=== PATIENT | female | born 1980 | race Two or more races ===

== ENCOUNTER 2016-06-14 20:10 | Emergency (ER) | payer MEDICARE, MEDICAID ==
[2016-06-14] MEDS ORDERED: LACTATED RINGERS 1,000 ML ONE (20:54)
[2016-06-14 21:09] LABS: BASO # 0.1 K/mm3 (0.0-0.2); BASO % 0.4 % (0.2-1.0); EOS # 0.2 (0.0-0.5); EOS % 1.5 % (0.9-2.9); HEMATOCRIT 32.1 % (37.0-47.0); HEMOGLOBIN 10.3 gm/l (12.0-16.0); IMM NEUT # 0.1 K/mm3 (0-0.2); IMM NEUT% 0.6 % (0-1); LYMPH # 2.7 (1.0-4.8); LYMPH % 23.4 % (15-45); MEAN CELL VOLUME 87.7 fl (81.0-99.0); MEAN CORPUSCULAR HEMOGLOBIN 28.1 pg (27.0-31.0); MEAN CORPUSCULAR HGB CONC 32.1 g/dl (33.0-37.0); MEAN PLATELET VOLUME 9.7 fl (7.4-10.4); MONO # 0.6 (0.0-0.8); MONO % 5.1 % (4-12); PLATELET COUNT 237 K/mm3 (130-400); RED CELL DISTRIBUTION WIDTH 16.9 % (11.5-14.5)
[2016-06-14 21:15] LABS: ALB/GLOB RATIO 1.1 (>1.0); ALBUMIN 3.3 gm/dL (3.5-5.7); CALCIUM 8.8 mg/dL (8.6-10.3)
[2016-06-14 22:03] LABS: SPECIFIC GRAVITY 1.005 (1.001-1.030); URINE BILIRUBIN NEGATIVE (NEGATIVE); URINE BLOOD 4+ (NEGATIVE); URINE GLUCOSE (UA) NEGATIVE (NEGATIVE); URINE LEUKOCYTE ESTERASE NEGATIVE (NEGATIVE); URINE NITRITE NEGATIVE (NEGATIVE); URINE PROTEIN NEGATIVE (NEGATIVE); URINE UROBILINOGEN NORMAL (0-1 mg/dl)
[2016-06-14 22:10] LABS: URINE APPEARANCE CLEAR; URINE COLOR YELLOW
[2016-06-14 22:19] LABS: URINE BACTERIA RARE; URINE EPITHELIAL CELLS 0-1 /hpf; URINE RBC 30-40 /hpf; URINE WBC 0-1 /hpf
[2016-06-14] MEDS ORDERED: RHOGAM 300 MCG SYRINGE ONE (23:03)
[2016-06-14] MEDS ORDERED: AMOXICILLIN TRIHYDRATE 250 MG CAPSULE ONE (23:36)
--- NOTE | 2016-06-15 08:31 | US ---
OB COMP >14 WKS HISTORY: Vaginal bleeding. COMPARISONS: 04/11/2016 FINDINGS: Multiple grayscale, color-flow and duplex Doppler images during Limited second trimester OB ultrasound are obtained. A single intrauterine gestation is identified in a breech position. Placental location is difficult to determine though likely fundal. No discernible amniotic fluid compatible with anhydramnios. heart tones are present at 167 bpm. Biparietal diameter is 4.1 cm for gestational age 18 weeks and 3 days. Head circumference 15.39 cm per gestational age of 18 weeks and 3 days. CI ratio is a 1.6. Cervix is closed measuring 4.3 cm. Right ovary is not visualized. Left ovary measures 2.6 x 2.1 x 2.3 cm with blood flow. Significant decrease in visibility of anatomy secondary to the lack of amniotic fluid. IMPRESSION: Anhydramnios is identified significantly limiting assessment, though no gross abnormality is identified. Single intrauterine gestation with heart tones of 167 bpm. 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 Preliminary report was provided by [employer] at approximately 2311 hours on 06/14/2016.
== END 2016-06-14 23:45 | disposition home or self-care (01) ==
LOC: ED 20:10
DX: O42.912 Preterm premature rupture of membranes, unspecified as to length of time between rupture and onset of labor, second trimester (principal); O99.332 Smoking (tobacco) complicating pregnancy, second trimester; F17.210 Nicotine dependence, cigarettes, uncomplicated; Z79.891 Long term (current) use of opiate analgesic; Z3A.18 18 weeks gestation of pregnancy; Z79.899 Other long term (current) drug therapy; Z88.2 Allergy status to sulfonamides

== ENCOUNTER 2016-06-15 23:56 | Inpatient (IN) | payer MEDICARE, MEDICAID ==
[2016-06-16 00:44] LABS: ABSOLUTE NEUTROPHIL COUNT 9.6 K/mm3 (1.8-7.7); BASO % 0.2 % (0.2-1.0); EOS # 0.2 (0.0-0.5); EOS % 1.4 % (0.9-2.9); HEMATOCRIT 30.4 % (37.0-47.0); HEMOGLOBIN 10.1 gm/l (12.0-16.0); IMM NEUT # 0.1 K/mm3 (0-0.2); IMM NEUT% 0.5 % (0-1); LYMPH # 2.1 (1.0-4.8); LYMPH % 16.6 % (15-45); MEAN CELL VOLUME 87.1 fl (81.0-99.0); MEAN CORPUSCULAR HEMOGLOBIN 28.9 pg (27.0-31.0); MEAN CORPUSCULAR HGB CONC 33.2 g/dl (33.0-37.0); MEAN PLATELET VOLUME 9.5 fl (7.4-10.4); MONO # 0.9 (0.0-0.8); MONO % 6.9 % (4-12); NEUT % 74.4 % (43-75); PLATELET COUNT 234 K/mm3 (130-400); RED CELL DISTRIBUTION WIDTH 16.8 % (11.5-14.5)
[2016-06-16 00:53] LABS: ALB/GLOB RATIO 1.1 (>1.0); ALBUMIN 3.3 gm/dL (3.5-5.7); CALCIUM 8.9 mg/dL (8.6-10.3)
[2016-06-16] MEDS ORDERED: ONDANSETRON 4 MG/2ML 2 ML VIAL IV PRN (01:58)
[2016-06-16] MEDS ORDERED: HYDROMORPHONE HCL 1 MG/ML SYRINGE IV PRN (01:58)
[2016-06-16] MEDS ORDERED: SODIUM CHLORIDE 0.9% IV SCH (02:00)
[2016-06-16] MEDS ORDERED: MISOPROSTOL 100 MCG TABLET PO SCH (02:00)
[2016-06-16] MEDS ORDERED: CEFTRIAXONE SODIUM IV SCH (02:00)
[2016-06-16] MEDS ORDERED: LACTATED RINGERS 1,000 ML IV PRN (02:18)
[2016-06-16] MEDS ORDERED: PUMP TUBING ONE (02:22)
[2016-06-16] MEDS ORDERED: CEFTRIAXONE 1 GRAM DUPLEX 50 ML IV ONE (03:13)
[2016-06-16 03:24] LABS: AMPHETAMINES/METHAMPHETAMINES NEGATIVE (NEGATIVE); COCAINE NEGATIVE (NEGATIVE); MARIJUANA NEGATIVE (NEGATIVE); METHADONE POSITIVE (NEGATIVE); OPIATES NEGATIVE (NEGATIVE); TRICYCLIC ANTIDEPRESSANTS NEGATIVE (NEGATIVE)
[2016-06-16] MEDS: MISOPROSTOL 200 MCG TABLET VG SCH ×5 (03:36→17:51)
--- NOTE | 2016-06-16 07:55 | US ---
EXAMINATION : OB LIMITED HISTORY: Assess cardiac activity. Miscarriage. Gestational age 18 weeks 3 days. COMPARISONS: Prior exam 06/14/2016. FINDINGS: Intrauterine fetus is noted with no demonstrable cardiac activity. There is considerable oligohydramnios. IMPRESSION: Intrauterine demise. There is severe oligohydramnios. Findings were communicated by [facility] to Dr. Espino at 3:54 AM 06/16/2016
--- NOTE | 2016-06-16 07:59 | PCMDEL ---
Delivery Note - Delivery Delivery (Date): 06/16/16 Delivery (Time): 07:20 Umbilical Cord: 3 Vessel Delayed Cord Clamping:: > 3 min Comments:: Patient is 18wk SROM, who presented with prolapsed cord and demise. Patient was given cytotec and delivered the spontaneously. We are awaiting delivery of the placenta.
--- NOTE | 2016-06-16 08:30 | PDOC36 ---
Provider Note Subject: Patient doing well. Pain controlled. Allowed to continue labor x1 hour to see if placenta delivered spontaneously. It has not. In the interim, the patient has lost around 1L of blood. A type and cross was performed and 1 u of blood was put on hold. Lizett is not symptomatic, but has not been ambulating either. Will wait to see if patient gets symptomatic before deciding to transfuse.
[2016-06-16] MEDS ORDERED: PROPOFOL 40 ML IV ONE (08:45)
[2016-06-16] MEDS ORDERED: LIDOCAINE 2% (PRES FREE) 5 ML VIAL ONE (08:45)
[2016-06-16] MEDS ORDERED: MIDAZOLAM HCL 1 MG/ML 2ML VIAL ONE (08:48)
[2016-06-16] MEDS ORDERED: FENTANYL 100 MCG/2 ML VIAL ONE (08:54)
[2016-06-16] MEDS ORDERED: ALBUTEROL SULFATE MDI 60 PUFFS/INHALER IH ONE (09:12)
[2016-06-16] MEDS ORDERED: KETOROLAC TROMETHAMINE 30 MG/ML 1 ML VIAL IV PRN (09:17)
--- NOTE | 2016-06-16 09:17 | PCMBPN ---
Brief Post Op Note: Date of Procedure: 06/16/16 Start Time: [] Preoperative Diagnosis: 1. [retained placenta] Postoperative Diagnosis: 1. [Same] Procedure: [Dilation and curettage] Surgeon: Ying Burkett DO Assist:[] Anesthesia: [MAC] Findings: [retained placenta, normal uterus] Condition: [stable] Complications: [] IV Fluids: [500] mLs of LR [] Urine Output: [0] mLs Estimated Blood Loss: [100] mLs Tourniquet Time: [N/A] Specimens: [placenta] Implants: [] Drains: [N/A]
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
--- NOTE | 2016-06-16 11:11 | OP ---
Lizett Dumont : 1980 DATE OF PROCEDURE: 06/16/2016 PREOPERATIVE DIAGNOSIS: Retained placenta. POSTOPERATIVE DIAGNOSIS: Retained placenta. PROCEDURE: Dilation and curettage. SURGEON: Ying Burkett DO. ANESTHESIA: MAC. FINDINGS: Retained placenta, normal uterus. CONDITION: Stable. COMPLICATIONS: None. INTRAVENOUS FLUIDS: 500 mL of lactated ringers. URINE OUTPUT: None. ESTIMATED BLOOD LOSS: 100 mL. SPECIMEN: Retained placenta. IMPLANTS: None. DRAINS: None. PROCEDURE: Patient was taken back to the operating room with IV fluids running where MAC anesthesia was easily obtained. She was placed in dorsolithotomy position in candy cane stirrups and her vagina was prepped with Betadine. After appropriate timeout was performed a weighted speculum was placed in the posterior aspect of the vagina. A right angle retractor was placed in the anterior aspect of the vagina and a medium sized curette was gently introduced into the uterus. The curette was used in all aspects of the uterus and a ring forceps was used to assist removal of the placenta. Once all contents of the uterus were evacuated a last pass was done with a sharp curette and gritty texture was noted in all aspects of the uterus. The bimanual exam revealed a firm uterine fundus and her bleeding was well controlled. At this point, the procedure was then determined to be complete. The patient was easily aroused from anesthesia and transferred to recovery in stable condition. JOB: [id number]
[2016-06-16] MEDS ORDERED: PNEUMOCOCCAL 23-VAL P-SAC VAC 0.5 ML VIAL IM V ONE (14:53)
[2016-06-16] MEDS: METHADONE 5 MG TABLET PO SCH ×2 (15:48→17:45)
[2016-06-16] MEDS: IBUPROFEN 800 MG TABLET PO PRN ×2 (18:04→23:56)
[2016-06-17] MEDS ORDERED: CEFTRIAXONE 1 GRAM DUPLEX 50 ML IV SCH (02:00)
[2016-06-17] MEDS: MISOPROSTOL 200 MCG TABLET VG SCH ×2 (04:01→04:02)
[2016-06-17] MEDS: METHADONE 5 MG TABLET PO SCH (04:02)
[2016-06-17 07:45] VITALS: BP 117/54
[2016-06-17] MEDS: IBUPROFEN 800 MG TABLET PO PRN (08:23)
--- NOTE | 2016-06-17 08:42 | PDOC39B ---
Hospital Course: ADMIT DATE: 06/16/16 DISCHARGE DATE: 06/17/16 ADMISSION DIAGNOSES: 18 weeks gestation; premature rupture of membranes , cord prolapse, intrauterine demise PROCEDURES: induction, vaginal delivery, dilation and curettage. HISTORY OF PRESENT ILLNESS: 36 year old G5 T1 L1 at 18 weeks 3 days presenting with demise after PPROM, with cord prolapse. HOSPITAL COURSE: The patient received misoprostol. Pt subsequently delivered vaginally. However Pt had retained placenta and was taken to OR for dilation and curettage. By day of discharge the patient is ambulating, eating, voiding, and passing flatus without difficulty. Pain is controlled. Pt has a h/o methadone use; will be discharged on ibuprofen. Follow up 2 weeks. - Physical Exam Vital Signs: Temp Pulse Resp BP Pulse Ox 97.5 F 81 20 117/54 94 06/17/16 07:42 06/17/16 07:42 06/17/16 07:42 06/17/16 07:42 06/16/16 14:28 - Discharge Plan Prescriptions: Ibuprofen [Motrin] 800 mg PO Q6H PRN #30 tablet PRN Reason: Pain Follow-Up: Ying Burkett DO [Primary Care Provider] - In 2 weeks
--- NOTE | 2016-06-19 15:23 | SURGPATH ---
[facility] [address] [place] [id number] Patient Name: DEVIN ARREOLA MR#: [id number] : 1980 Gender: F Specimen #: [id number] Collected: 06/16/2016 Received: 06/17/2016 Reported: 06/19/2016 Submitting Phys: MOJGAN OCAMPO Copy To Phys: [facility] Clinical History / Pre-Operative Diagnosis: DEMISE, 19 WEEKS GESTATION Specimen Source / Surgical Procedure Performed: PLACENTA Interpretation: PLACENTA, DELIVERY: - SECOND TRIMESTER LING PLACENTA WITH CHORIOAMNIONITIS Electronically Signed Out Aurora Greenwood M.D. Gross Description: The specimen is received in a formalin filled container labeled with the patient's name and "placenta". Multiple tattered fragments of spongy herman placenta-like tissue and membranes are together 9.5 x 9.0 x 3 cm and 98 g. There is a recognizable 4.0 x 0.5 cm portion of umbilical cord. A number of vessels is indeterminate. The surface and membranes are glistening and purple herman. The membranes appear to insert normally. The maternal surface is tattered, herman and spongy and cannot be assessed at completeness. Sectioning through the fragments reveals no nodule or induration. Gross summary: Small, tattered, ling placenta with no gross pathologic findings. Summary of sections: A-umbilical cord and membranes B-edge section C-full thickness section José Manuel Oneil Microscopic Description: Sections from the membranes show acute inflammation, particularly along the interface between the amnion and the chorion. The placental disc is composed of broad and immature villi, consistent with second trimester placenta. There is fibrin deposition and degenerative changes. 1: [id number]
== END 2016-06-17 09:31 | disposition home or self-care (01) | DRG 767 ==
LOC: ED 23:56 → EEVIPCON 06-16 00:26 → FBC 06-16 00:26
PROVIDERS: ADMIT Obstetrics & Gynecology; ATTEND Obstetrics & Gynecology
PROC: 10E0XZZ Delivery of Products of Conception, External Approach (ICD-10-PCS; principal; 2016-06-16)
PROC: 10D17ZZ Extraction of Products of Conception, Retained, Via Natural or Artificial Opening (ICD-10-PCS; 2016-06-16)
DX: O36.4XX0 Maternal care for intrauterine death, not applicable or unspecified (principal); O41.1220 Chorioamnionitis, second trimester, not applicable or unspecified; O99.322 Drug use complicating pregnancy, second trimester; Z3A.18 18 weeks gestation of pregnancy; Z37.1 Single stillbirth; O69.0XX0 Labor and delivery complicated by prolapse of cord, not applicable or unspecified; Z37.0 Single live birth; O73.0 Retained placenta without hemorrhage; O9A.32 Physical abuse complicating childbirth; O09.522 Supervision of elderly multigravida, second trimester; O99.342 Other mental disorders complicating pregnancy, second trimester; F31.9 Bipolar disorder, unspecified; F11.90 Opioid use, unspecified, uncomplicated